=== PATIENT | male | born 1950 | race Caucasian/White ===

== ENCOUNTER → 2016-10-02 | Outpatient (CLI) | payer MEDICARE, OTHER ==
--- NOTE | 2016-10-02 12:51 | US ---
EXAMINATION TYPE: US thyroid st tissue head/neck DATE OF EXAM: 10/02/2016 11:39 AM COMPARISON: 09/17/2015 CLINICAL HISTORY: Thyroid Nodule E04.1. GLAND SIZE: Right Lobe: 4.7 x 2.2 x 2.5 cm Overall Parenchyma: heterogenous Left Lobe: 4.4 x 1.8 x 2.2 cm Overall Parenchyma: heterogeneous Isthmus Thickness: 0.3 cm NODULES RIGHT: # of nodules measured on right: 4 1. 1.1 X 0.6 x 1.0 cm hypoechoic solid nodule at the upper pole with well-defined margins. This no dule is wider than tall and shows intranodular vascularity. Prior size: 1.2 x 0.6 x 1.0 cm 2. 0.9 X 0.8 x 0.9 cm hypoechoic solid nodule at the upper/mid pole with well-defined margins. This nodule is wider than tall and shows no intranodular vascularity. Prior size: 0.9 x 0.9 x 0.9 cm 3. 2.0 X 1.8 x 1.7 cm hypoechoic solid nodule at the mid/lower pole with well-defined margins. This nodule is wider than tall and shows no intranodular vascularity. Prior size: 2.2 x 1.3 x 1.5 cm 4. 2.0 X 1.7 x 1.6 cm hypoechoic solid nodule at the lower pole with well-defined margins. This nod ule is wider than tall and shows no intranodular vascularity. Prior size: 2.1 x 1.7 x 1.6 cm LEFT: # of nodules measured on left: 0 ISTHMUS: # of nodules measured in the isthmus: 0 TECHNOLOGIST IMPRESSION: Right thyroid nodules as noted on prior exam. Probable lymph node left neck = 1.5 x 0.7 x 0.9cm IMPRESSION: 1. Bilateral thyroid nodules, stable
== END | disposition home or self-care (01) ==
LOC: RADUSWWP 10:57
PROVIDERS: ATTEND Surgery
DX: E04.2 Nontoxic multinodular goiter (principal)
CPT/HCPCS: 76536

== ENCOUNTER → 2016-10-19 | Outpatient (CLI) | payer MEDICARE, OTHER ==
--- NOTE | 2016-10-19 14:21 | CONS ---
DATE OF CONSULTATION: 10/19/2016 CONSULTATION/NEW PATIENT EVALUATION: A 66-year-old gentleman who had been re-evaluated in the Sleep Center for obstructive sleep apnea-hypopnea syndrome. HISTORY OF PRESENT ILLNESS/SLEEP-WAKE EVALUATION: Patient had last CPAP titration in 2010. At that time recommended pressure of 10 cm of water. Patient weight at that time was 284.8 pounds. Since that time, patient lost weight down to 244 pounds in 2012 and that was the last time when he was seen by me in Sleep Center. DURING SLEEP: Since that time, patient has increased his weight back to 279 pounds today. He continued to use his CPAP equipment every night for the whole night. He denied any significant snoring with the using of the CPAP tests. He has possibly awakening from sleep in the middle of the night bid nocturia. [place] Sleepiness Scale is 10. DURING THE DAY: During the day sometimes patient has problems with malaise and concentration. SLEEP SCHEDULE: Patient's usual sleep schedule is from 11:30 p.m. to 5 to 6 a.m. FALLING ASLEEP: No problem with falling asleep. No TV in bedroom. DURING THE DAY/WAKE EVALUATION: He may take one nap a day at around 8 - 10 p.m. No hypnagogic hallucinations. No sleep paralysis. PAST MEDICAL HISTORY: Hypertension, hyperlipidemia, back problems. PAST SURGICAL HISTORY: Right total hip replacement, L1-L2 laminectomy and fusion, tonsillectomy, appendectomy. MEDICATIONS: Enalapril, hydrochlorothiazide, ibuprofen. SOCIAL HISTORY: Positive for smoking on and off for about 45 years about 1 pack a day. Alcohol consumption occasional. FAMILY HISTORY: Hypertension, heart problems, arthritis, snoring, cancer, acid reflux, liver problems, thyroid problems. REVIEW OF SYSTEMS: Patient denied any significant sleepiness. PHYSICAL EXAM: During physical exam, a 66-year-old gentleman without distress. BP 152/87, HR 88, RR 16. Height 6, 1, weight 279. BMI 36.8. Neck 17-3/4 inches in circumference. Temperature 97.0. Oxygen saturation 97%. Oropharynx extremely low position of soft palate. ABDOMEN: Obese. EXTREMITIES: 1+ bilateral lower leg edema. IMPRESSION: 1. Obstructive sleep apnea-hypopnea syndrome mostly on control on CPAP unit with the pressure of 10 cm of water. Patient denied any snoring but [place] Sleepiness Scale is slightly increased to 10 and patient takes naps sometimes in the evening. 2. Obesity, body mass index of 36.8. 3. Hypertension. 4. Minimal swelling of the legs. 5. History of hyperlipidemia. 6. Status post total right hip replacement. 7. Back problems. 8. Status post L1-L2 laminectomy and fusion. 9. Status post tonsillectomy. 10. Status post appendectomy. PLAN: 1. Continue treatment with CPAP every night for the whole night. 2. Prescription for new CPAP supplies, including new CPAP machine. Patient CPAP unit is older than 6 years. 3. Losing weight. 4. Sleep hygiene with regular time in bed for at least 8 hours. 5. No driving if feeling any sleepiness. 6. I will see the patient for followup visit after he will get his new unit to evaluate clinical response on treatment, compliance with treatment and share apnea-hypopnea index reading from his machine to be sure that his treatment is working. Thank you very much for me allowing me to participate in the management of your patient. Sincerely, Rommel Palomares MD, PhD, FAASM. Diplomat of [place] [employer], Sleep Medicine Board by [place] [employer] [place] [employer] Cardio Clinician of [facility] [place]
== END | disposition home or self-care (01) ==
LOC: SLEEP 10:15
PROVIDERS: ATTEND Internal Medicine
DX: G47.33 Obstructive sleep apnea (adult) (pediatric) (principal); E66.9 Obesity, unspecified; Z68.36 Body mass index [BMI] 36.0-36.9, adult; I10 Essential (primary) hypertension; M79.89 Other specified soft tissue disorders; E78.5 Hyperlipidemia, unspecified; Z96.641 Presence of right artificial hip joint; Z98.1 Arthrodesis status; Z98.890 Other specified postprocedural states; F17.200 Nicotine dependence, unspecified, uncomplicated; Z79.899 Other long term (current) drug therapy
CPT/HCPCS: 99211

== ENCOUNTER → 2016-12-07 | Outpatient (CLI) | payer MEDICARE, OTHER ==
--- NOTE | 2016-12-07 11:24 | PN ---
DATE OF SERVICE: 12/07/2016 A 66-year-old gentleman who has been followed in the sleep center for treatment of obstructive sleep apnea/hypopnea syndrome. Patient received his new CPAP unit about one month ago by results of previous sleep study recommended CPAP pressure with 10 cm of water. I checked patient's CPAP machine. Patient is using the machine 100% of the time and 93% of the time for more than 4 hours. Leak from the patient's mask is up to 25 L/min, which is acceptable. Apnea-hypopnea index reading from the machine is 7.7 for the last month; for the last night, although it is 14.5, which is obviously higher than we are expecting. No significant sleepiness during the day. [place] Sleepiness Scale is 6. MEDICATIONS: Enalapril, hydrochlorothiazide, ibuprofen. The last titration done in 2010. During the physical exam, the patient in no distress. VITAL SIGNS: BP 157/92, HR 82, RR 16. Weight 272, which is less than during the last titration. Temperature 97.3. Oxygen saturation at room air 97%. HEENT: PERRLA. EOMI. Oropharynx extremely low position of soft palate. HEENT: PERRLA, EOMI. Evaluation of oropharynx showed tongue protrudes midline. Neck: Supple. No JVD. Thyroid is not palpable. LUNGS: Clear to percussion and to auscultation. Good air exchange. No wheezing or rhonchi. HEART: S1, S2 regular. No murmurs, gallops, or rubs. ABDOMEN: Obese. EXTREMITIES: No clubbing or cyanosis. HYDROELECTRIC PRODUCTION MANAGER: Awake, alert, and oriented x3. Cranial nerves 2 to 7 intact. There is no fasciculation or atrophy noted. No focal deficits observed. IMPRESSION: 1. Obstructive sleep apnea/hypopnea syndrome. Patient demonstrated very good compliance with treatment benefiting from treatment. 2. Some abnormalities of respiration with CPAP have been documented. 3. Obesity. 4. Hypertension. 5. History of hyperlipidemia. 6. Status post total right hip replacement. 7. Back problem. 8. Status post L1-L2 laminectomy and fusion. 9. Status post tonsillectomy. 10. Status post appendectomy. PLAN: 1. I changed regimen in CPAP unit to automatic in the range between 8 and 15. 2. Losing weight. 3. Sleep hygiene with regular time in bed for at least 8 hours. 4. No driving if feeling any sleepiness. 5. Sleep hygiene with regular time in bed for at least 8 hours. 6. Follow-up visit in 2 months. Thank you very much for allowing me to participate in the management your patient. Sincerely, Rommel Palomares MD, PhD, FAASM. Diplomat of [place] Board [employer], Sleep Medicine Board by [employer] of [employer] Medicine Pointer Helper of [facility] [place]
== END | disposition home or self-care (01) ==
LOC: SLEEP 10:09
PROVIDERS: ATTEND Internal Medicine
DX: G47.33 Obstructive sleep apnea (adult) (pediatric) (principal); E66.9 Obesity, unspecified; I10 Essential (primary) hypertension; E78.5 Hyperlipidemia, unspecified; Z96.641 Presence of right artificial hip joint; Z98.1 Arthrodesis status; Z98.890 Other specified postprocedural states; Z79.899 Other long term (current) drug therapy

== ENCOUNTER → 2016-12-29 | Outpatient (CLI) | payer MEDICARE, OTHER ==
--- NOTE | 2016-12-29 17:10 | CT ---
EXAMINATION TYPE: CT abdomen pelvis w con DATE OF EXAM: 12/29/2016 8:23 AM COMPARISON: NONE INDICATION: Umbilical hernia, chronic hepatitis, change in bowel habits DLP: 1682.4 mGycm, Automated exposure control for dose reduction was used. CONTRAST: 100 mL of Omnipaque 300. Study performed with Oral Contrast TECHNIQUE: Axial images were obtained from above the diaphragm to the pubic rami in the axial plane a t 5 mm thick sections. Reconstructed images are reviewed on the computer in the coronal plane. FINDINGS: Limited CT sections are obtained the lung bases. There is pneumonitis change in the posterior right lung base. Infection and mass would be within the differential. Follow-up is recommended. This may be an interval finding from 11/28/2010. CT ABDOMEN: Liver: Normal Spleen: Normal Pancreas: Normal Adrenal glands: Right adrenal gland is somewhat thickened at 1.3 cm. Left adrenal gland appears jose ramon l. Gallbladder: Normal Kidneys: No masses are evident. No hydronephrosis is present. A 0.9 cm cyst may be at the inferior pole left kidney. Delayed images were obtained through the kidneys, which remain unremarkable. Left periumbilical hernia containing mesenteric fat is present. The opening is 1.7 cm. Aorta: Vascular calcification is within the aorta. Inferior vena cava: Normal. CT PELVIS: Loops of bowel within the abdomen and pelvis are normal. There are loops of bowel which are incom pletely distended or lack oral contrast limiting their evaluation. Appendix: Normal as visualized. Urinary bladder: Normal. Genitourinary structures: Prostate appears within normal limits. Right hip beam hardening is present. Osseous structures: No suspicious lytic or sclerotic lesions. Degenerative disc changes are within th e lumbar spine. IMPRESSIONS: 1. Periumbilical hernia. 2. Mild prominence of the right adrenal gland.
== END | disposition home or self-care (01) ==
LOC: RADCTMAIN 07:55
PROVIDERS: ATTEND Family Medicine
DX: K42.9 Umbilical hernia without obstruction or gangrene (principal); B18.2 Chronic viral hepatitis C
CPT/HCPCS: 74177; Q9967

== ENCOUNTER → 2017-02-01 | Outpatient (CLI) | payer MEDICARE, OTHER ==
--- NOTE | 2017-02-01 10:58 | PN ---
DATE OF SERVICE: 02/01/2017 A 66-year-old gentleman who had been followed in sleep center for treatment of obstructive sleep apnea and hypopnea syndrome. During the previous visit, I changed the CPAP pressure from 10 cm of water to automatic regimen from 8 to 15 cm of water. Patient continued to use his CPAP equipment every night. I checked his CPAP unit today. Usage is 26 out of 30 nights for more than 4 hours. ( ) from the machine in the range of about 12.2 cm of water. AHI for the last month 8.1. Sometimes significant leak from the mask about 35 L/min. Patient uses Cortés FX nasal pillows. Sometimes he feels dry mouth, so most probably leak related to opening his mouth. He lost weight from 279 pounds down to 253 pounds. No significant sleepiness during the day. [place] Sleepiness Scale is 5. MEDICATIONS: Enalapril, hydrochlorothiazide, ibuprofen. During physical exam, the patient in no distress. VITAL SIGNS: BP 145/80, HR 72, RR 16. Height 6 feet 1 inch, weight 253. BMI 33.8. Temperature 92.9. Oxygen saturation at room air 99%. HEENT: PERRLA, EOMI, Evaluation of the oropharynx showed extremely low position of soft palate. NECK: Supple. No JVD, Thyroid is not palpable. LUNGS: Clear to percussion and to auscultation. Good air exchange. No wheezing or rhonchi. HEART: S1, S2 regular. No murmurs, gallops, or rubs. ABDOMEN: Soft and nontender. Bowel sounds are present. No organomegaly appreciated. GRATING MACHINE OPERATOR: Awake, alert, and oriented x3. Cranial nerves 2 to 7 intact. There is no fasciculation or atrophy noted. No focal deficits observed. IMPRESSION: 1. Obstructive sleep apnea hypopnea syndrome. Patient demonstrated great compliance with treatment benefiting from treatment with CPAP. Borderline leak by reading from the machine, possibly related to opening of his mouth. 2. Hypertension. 3. Hyperlipidemia. 4. Status post total right hip replacement. 5. Back problem. 6. Status post L1-L2 laminectomy and fusion. 7. Status post tonsillectomy. 8. Status post appendectomy. 9. Mild obesity. Patient lost weight down from 279 pounds to 253 pounds. PLAN: 1. Continue treatment with CPAP with the same regimen every night for the whole night. 2. Prescription for chin strap. 3. Continue losing weight. 4. Sleep hygiene with regular time in bed for at least 8 hours. 5. No driving if feeling any sleepiness. Thank you very much for allowing me to participate in the management of your patient. Sincerely, Rommel Palomares MD, PhD, FAASM Diplomat of [place] [employer] Sleep Medicine, Sleep Medicine Board by [place] [employer] Specialities [employer] [employer] of Internal Medicine [place] Actor of [facility] [place]
== END | disposition home or self-care (01) ==
LOC: SLEEP 09:58
PROVIDERS: ATTEND Internal Medicine
DX: G47.33 Obstructive sleep apnea (adult) (pediatric) (principal); I10 Essential (primary) hypertension; E66.9 Obesity, unspecified; Z68.33 Body mass index [BMI] 33.0-33.9, adult; Z79.899 Other long term (current) drug therapy

== ENCOUNTER → 2017-11-01 | Outpatient (CLI) | payer MEDICARE, OTHER ==
--- NOTE | 2017-11-01 11:23 | SFUN ---
SLEEP STUDY FOLLOW UP NOTE DATE OF SERVICE: 11/01/2017 This 67-year-old gentleman has been followed in sleep center for treatment of obstructive sleep apnea-hypopnea syndrome. The patient continued to use his CPAP equipment every night without significant problems related to mask, pressure or humidification. He is using a nasal pillow mask. [place] Sleepiness Scale today is 9. I checked his CPAP unit pressure mostly time in the range of 12.5, quite significant leak 31 L/minute. Apnea-hypopnea index in acceptable range for the last month 5.7, for 6 months 5.1, for the last night, 4.3. MEDICATIONS: Enalapril, hydrochlorothiazide, ibuprofen. PHYSICAL EXAM: During physical exam, patient in no distress. VITAL SIGNS: BP 153/90, HR 88, RR 16, height 6 feet and 1 inch, weight 247, BMI 32.5, temperature 97.2. The patient lost 6 pounds since the previous visit. Oxygen saturation in room air 99%. HEENT: PERRLA, EOMI. Oropharynx extremely low position of soft palate. NECK: Supple, no JVD. Thyroid is not palpable. LUNGS: A few wheezes. HEART: S1, S2 regular. No murmurs, gallops, or rubs. ABDOMEN: Soft and nontender. Bowel sounds are present. No organomegaly appreciated. EXTREMITIES: No clubbing or cyanosis. INTERACTIVE MARKETING STRATEGIST: Awake, alert, and oriented X3. Cranial nerves 2 to 7 intact. There is no fasciculation or atrophy. noted. No focal deficits observed. IMPRESSION: 1. Obstructive sleep apnea-hypopnea syndrome. The patient demonstrated great compliance with treatment benefitting from treatment. 2. Mild obesity, body mass index 32.5. 3. Hypertension. 4. Hyperlipidemia. 5. Status post total right hip replacement. 6. Status post L1-L2 laminectomy and fusion. 7. Back problems. 8. Status post tonsillectomy. 9. Status post appendectomy. 10.History of smoking for about 50-pack years; cough in the morning; possible chronic obstructive pulmonary disease. PLAN: 1. Continue treatment with CPAP with the same regimen, it is an auto from 8 to 15. 2. Continue losing weight. 3. Sleep hygiene with regular time in bed for at least 7-1/2 hours. 4. Prescription for all necessary CPAP supplies including mask, tube, filters. 5. No driving if feeling sleepiness. 6. Followup visit in 1 year or earlier if patient has any problems. 7. I discussed with the patient the necessity to consider stop smoking. Patient smokes for about 50 years. Continues smoking 1 pack a day. Has cough in the morning. Possible COPD. Thank you very much for allowing me to participate in management of your patient. Sincerely, Rommel Palomares MD, PhD, FAASM Diplomat of [employer] Special[employer] Board of Internal Medicine [place] Department Specialist of [facility] [place] MMODL / IJN: [id number] /
== END | disposition home or self-care (01) ==
LOC: SLEEP 09:59
PROVIDERS: ATTEND Internal Medicine
DX: G47.33 Obstructive sleep apnea (adult) (pediatric) (principal); E66.9 Obesity, unspecified; I10 Essential (primary) hypertension; E78.5 Hyperlipidemia, unspecified; Z99.89 Dependence on other enabling machines and devices; Z79.1 Long term (current) use of non-steroidal anti-inflammatories (NSAID); Z79.899 Other long term (current) drug therapy; Z68.32 Body mass index [BMI] 32.0-32.9, adult; Z98.1 Arthrodesis status; Z96.641 Presence of right artificial hip joint; Z90.89 Acquired absence of other organs; Z87.891 Personal history of nicotine dependence

== ENCOUNTER → 2018-01-23 | Outpatient (CLI) | payer MEDICARE, OTHER ==
--- NOTE | 2018-01-23 09:24 | US ---
EXAMINATION TYPE: US thyroid st tissue head/neck DATE OF EXAM: 01/23/2018 COMPARISON: 10/02/2016 CLINICAL HISTORY: 67-year-old male E04.2 MULTIPLE THYROID NODULES. Follow up thyroid nodules. Hx of negative thyroid biopsy. No thyroid medications. TECHNIQUE: Multiple sonographic images of the thyroid gland are obtained. FINDINGS: GLAND SIZE: Right Lobe: 5.4 x 2.1 x 2.3 cm Overall Parenchyma: heterogenous Left Lobe: 3.4 x 2.5 x 1.6 cm Overall Parenchyma: heterogeneous Isthmus Thickness: 0.3 cm NODULES RIGHT: # of nodules measured on right: 4 1. 1.2 X 1.0 x 0.6 cm isoechoic solid nodule at the upper pole with well-defined margins. This nod ule is taller than wide and shows intranodular vascularity. Prior size: 1.1 x 0.6 x 1.0 cm 2. Not appreciated on today's ultrasound scan 3. 2.3 X 1.6 x 1.4 cm hypoechoic solid nodule at the mid/lower pole with well-defined margins. This nodule is taller than wide and shows intranodular vascularity. Prior size: 2.0 x 1.8 x 1.7 cm 4. 1.7 X 1.5 x 1.8 cm hypoechoic solid nodule at the lower pole with well-defined margins. This nod ule is taller than wide and shows intranodular vascularity. Prior size: 2.0 x 1.7 x 1.6 cm LEFT: # of nodules measured on left: 0 ISTHMUS: # of nodules measured in the isthmus: 0 Bilateral neck scanned. Two lesions seen lateral to right thyroid. 1= 1.3 x 0.8 x 0.8 cm. 2= 0.6 x 0.4 x 0.7 cm, likely small cervical lymph nodes. IMPRESSION: Multiple nodules in the right lobe, largest measuring 2.3 x 1.6 cm versus 2.0 x 1.8 cm, previously, n ot significantly changed. One of the nodules previously seen is no longer identified and the other 2 nodules measure 1.8 cm and 1.2 cm, not significantly changed.
== END | disposition home or self-care (01) ==
LOC: RADUSWWP 08:13
PROVIDERS: ATTEND Family Medicine
DX: E04.2 Nontoxic multinodular goiter (principal)
CPT/HCPCS: 76536

== ENCOUNTER → 2018-09-20 | Outpatient (CLI) | payer MEDICARE, OTHER ==
[2018-09-20 08:23] LABS: Basophils % (A) 0 %; Eosinophils # (A) 0.2 k/uL (0-0.7); Eosinophils % (A) 3 %; HCT 45.7 % (39.0-53.0); HGB 15.5 gm/dL (13.0-17.5); Lymphocytes # (A) 1.2 k/uL (1.0-4.8); Lymphocytes % (A) 16 %; MCH 32.5 pg (25.0-35.0); MCHC 33.9 g/dL (31.0-37.0); MCV 95.8 fL (80.0-100.0); Monocytes # (A) 0.5 k/uL (0-1.0); Monocytes % (A) 7 %; Neutrophils # (A) 5.4 k/uL (1.3-7.7); Neutrophils % (A) 73 %; Platelet Count 226 k/uL (150-450); RBC 4.77 m/uL (4.30-5.90); WBC 7.4 k/uL (3.8-10.6)
[2018-09-20 17:45] LABS: Albumin 4.3 g/dL (3.80-4.90); Albumin/Globulin Ratio 2.39 (1.20-2.10); Anion Gap 9.8 mmol/L (4.00-12.00); Calcium 9.3 mg/dL (8.7-10.3); Carbon Dioxide 27.2 mmol/L (21.6-31.8); Globulin 1.8 g/dL (1.6-3.3); LDL Cholesterol,Calculated 170.6 mg/dL (0.0-131.0); Potassium 3.8 mmol/L (3.5-5.5); Total Bilirubin 0.6 mg/dL (0.2-1.2); Total Protein 6.1 g/dL (6.2-8.2); VLDL Calculation 22.4 mg/dL (5.00-40.00)
[2018-09-20 21:23] LABS: Hemoglobin A1C 5.5 % (4.0-6.0)
[2018-09-23 10:29] LABS: Hepatits C Virus RNA Not detected (Not detected); Hepatits C Virus RNA, Quant <12 IU/mL (<12); LOG HCV IU/mL <1.08 (<1.08)
== END | disposition home or self-care (01) ==
LOC: LABWHC1 07:34
PROVIDERS: ATTEND Family Medicine
DX: I10 Essential (primary) hypertension (principal); E78.2 Mixed hyperlipidemia; E04.1 Nontoxic single thyroid nodule; R76.8 Other specified abnormal immunological findings in serum
CPT/HCPCS: 36415; 80053; 80061; 83036; 84443; 85025; 86803; 87522

== ENCOUNTER → 2019-02-06 | Outpatient (CLI) | payer MEDICARE, OTHER ==
--- NOTE | 2019-02-06 12:27 | SFUN ---
SLEEP CENTER FOLLOW UP NOTE DATE OF SERVICE: 02/06/2019 A 68-year-old gentleman who has been followed in the Sleep Center for treatment of obstructive sleep apnea-hypopnea syndrome. Patient continued to use his CPAP equipment every night for the whole night. [place] Sleepiness Scale is 8, which is in normal range. I checked his CPAP unit, it is in automatic regimen with a pressure 8-15 cm of water. Average pressure of 14.3 cm of water. Usage is 30/30 nights for more than 4 hours with average usage 6.1 hours. Leak 32 L/minute. Apnea-hypopnea index for 1 month 10.1, for 6 months 8.3. Patient significantly increased his weight since previous visit. MEDICATIONS: Enalapril, hydrochlorothiazide, ibuprofen. PHYSICAL EXAM: Patient in no distress. BP 157/95, HR 72, RR 16, height 6 foot 1 inch, weight 271 pounds, body mass index 35.7, temperature 97.4, oxygen saturation at room air 97%. OROPHARYNX: Extremely low position of soft palate, Mallampati 4. ABDOMEN: Slightly obese. Neck Supple, no JVD. Thyroid is not palpable. LUNGS Clear to percussion and to auscultation. Good air exchange. No wheezing or rhonchi. HEART S1, S2 regular. No murmurs, gallops, or rubs. EXTREMITIES No clubbing or cyanosis. POWER LINE INSTALLER Awake, alert, and oriented X3. Cranial nerves 2 to 7 intact. There is no fasciculation or atrophy. noted. No focal deficits observed. IMPRESSION: 1. Obstructive sleep apnea-hypopnea syndrome. Patient demonstrated 100% compliance with treatment, benefitting from treatment with increasing weight, slight increasing of apnea/hypopnea index, in mild range. 2. Obesity, patient increased weight from 247 pounds during previous visit to 271 pounds during this visit. 3. Hypertension. 4. Hyperlipidemia. 5. Status post total right hip replacement. 6. Status post L1-L2 laminectomy and fusion. 7. Back problems. 8. Status post tonsillectomy. 9. Status post appendectomy. 10.History of smoking for about 50 pack years. Patient quit smoking during the last year. PLAN: 1. I increased maximal pressure in CPAP unit to 16. I discussed with the patient possibility of repeating CPAP titration. He is refusing to do it at the present time. 2. Losing weight. 3. Sleep hygiene with regular time in bed for at least 8 hours. 4. Prescription for all necessary CPAP supplies will be maintained including mask, tube, filters. 5. No driving if feeling sleepiness. Thank you very much for allowing me to participate in the management of your patient. Sincerely, Rommel Palomares MD, PhD, FAASM Diplomat of [employer] Specialties [employer] Board of Internal Medicine Cloth Finishing Range Tender of [facility] [place] MMODL / PAYAMN: [id number] /
== END | disposition home or self-care (01) ==
LOC: SLEEP 10:24
PROVIDERS: ATTEND Internal Medicine
DX: G47.33 Obstructive sleep apnea (adult) (pediatric) (principal); E66.9 Obesity, unspecified; I10 Essential (primary) hypertension; M54.9 Dorsalgia, unspecified; E78.5 Hyperlipidemia, unspecified; Z79.899 Other long term (current) drug therapy; Z96.651 Presence of right artificial knee joint; Z99.89 Dependence on other enabling machines and devices; Z68.35 Body mass index [BMI] 35.0-35.9, adult; Z98.1 Arthrodesis status; Z79.1 Long term (current) use of non-steroidal anti-inflammatories (NSAID); Z90.89 Acquired absence of other organs; Z79.891 Long term (current) use of opiate analgesic

== ENCOUNTER → 2019-06-04 | Outpatient (CLI) | payer MEDICARE, OTHER ==
[2019-06-04 08:40] LABS: Basophils # (A) 0.1 k/uL (0-0.2); Basophils % (A) 1 %; Eosinophils % (A) 0 %; HCT 43.2 % (39.0-53.0); HGB 14.9 gm/dL (13.0-17.5); Lymphocytes # (A) 0.7 k/uL (1.0-4.8); Lymphocytes % (A) 9 %; MCH 32.4 pg (25.0-35.0); MCHC 34.6 g/dL (31.0-37.0); MCV 93.7 fL (80.0-100.0); Mean Platelet Volume 6.2; Monocytes # (A) 0.5 k/uL (0-1.0); Monocytes % (A) 7 %; Neutrophils # (A) 6.8 k/uL (1.3-7.7); Neutrophils % (A) 82 %; Platelet Count 255 k/uL (150-450); RBC 4.61 m/uL (4.30-5.90); RDW 12.9 % (11.5-15.5); WBC 8.2 k/uL (3.8-10.6)
[2019-06-04 16:44] LABS: African American GFR (CKD) 105.6 (60.0-200.0); Albumin 4.7 g/dL (3.80-4.90); Albumin/Globulin Ratio 2.76 (1.60-3.17); Anion Gap 11.7 mmol/L (4.00-12.00); Calcium 9.8 mg/dL (8.7-10.3); Carbon Dioxide 26.3 mmol/L (21.6-31.8); Chol/HDL Ratio 4.05; Globulin 1.7 g/dL (1.6-3.3); Total Bilirubin 0.5 mg/dL (0.2-1.2); Total Protein 6.4 g/dL (6.2-8.2); Uric Acid 4.7 mg/dL (3.7-8.7)
[2019-06-04 18:27] LABS: Hemoglobin A1C 5.3 % (4.0-6.0)
== END | disposition home or self-care (01) ==
LOC: LABWHC1 08:02
PROVIDERS: ATTEND Family Medicine
DX: E55.9 Vitamin D deficiency, unspecified (principal); E78.2 Mixed hyperlipidemia; R05 Cough; R06.2 Wheezing; I10 Essential (primary) hypertension; R73.01 Impaired fasting glucose; R76.8 Other specified abnormal immunological findings in serum; Z87.891 Personal history of nicotine dependence; Z12.5 Encounter for screening for malignant neoplasm of prostate
CPT/HCPCS: 36415; 80053; 80061; 82306; 83036; 84153; 84443; 84550; 85025; 86803

== ENCOUNTER → 2019-07-02 | Outpatient (CLI) | payer MEDICARE, OTHER ==
[2019-07-02 12:03] LABS: Prolactin 9.1 ng/mL (2.1-17.7)
[2019-07-02 15:14] LABS: ACTH 7.2 pg/mL (0.00-45.99)
== END | disposition home or self-care (01) ==
LOC: LABWHC1 07:46
PROVIDERS: ATTEND Family Medicine
DX: I10 Essential (primary) hypertension (principal); Q89.1 Congenital malformations of adrenal gland
CPT/HCPCS: 36415; 82024; 82088; 82533; 82627; 83835; 84146; 84244

== ENCOUNTER → 2020-04-20 | Outpatient (CLI) | payer MEDICARE, OTHER | END | disposition home or self-care (01) | LOC: LABWHC1 10:42 | PROVIDERS: ATTEND Family Medicine | DX: R06.02 Shortness of breath (principal) | CPT/HCPCS: U0003; C9803 ==

== ENCOUNTER → 2020-05-27 | Outpatient (CLI) | payer MEDICARE, OTHER ==
--- NOTE | 2020-05-28 03:58 | SFUN ---
SLEEP CENTER FOLLOW UP NOTE DATE OF SERVICE: 05/27/2020 This is a 69-year-old gentleman who has been followed in Sleep Center for treatment of obstructive sleep apnea-hypopnea syndrome. Recently patient received his loaner for his CPAP unit because his CPAP equipment did not work well. Patient has difficulties to using his CPAP machine. He feels the pressure is high and sometimes there is significant leak from the mask. I checked the CPAP machine. CPAP pressure is 16 cm of water. Patient demonstrated good compliance. He is using machine 30 out of 30 nights for more than 4 hours with average of 6 hours per night. Apnea-hypopnea index reading from the machine is 7.8. Significant leak is 112 L/minute. Patient using nasal pillow mask Cortés FX. [place] Sleepiness Scale is 11. MEDICATIONS: Enalapril 20 mg twice daily, hydrochlorothiazide 25 mg once a day, metoprolol 50 mg twice daily, ibuprofen 800 mg once daily, 81 mg of aspirin once daily. PHYSICAL EXAMINATION: GENERAL: Patient in no distress. VITAL SIGNS: BP 160/92, HR 69, RR 15, height 6 feet 1-1/4 inches, weight 284.4, temperature 98.2, oxygen saturation at room air 97%. HEENT: PERRLA, EOMI. Oropharynx extremely low position of soft palate. Mallampati 4. NECK: Supple, no JVD. Thyroid is not palpable. LUNGS: Clear to percussion and to auscultation. Good air exchange. No wheezing or rhonchi. HEART: S1, S2 regular. No murmurs, gallops, or rubs. ABDOMEN: Obese. EXTREMITIES: No clubbing or cyanosis. OPEN HEARTH FURNACE OPERATOR HELPER: Awake, alert, and oriented X3. Cranial nerves 2 to 7 intact. There is no fasciculation or atrophy. noted. No focal deficits observed. IMPRESSION: 1. Obstructive sleep apnea-hypopnea syndrome. The patient demonstrated good compliance with treatment benefitting from treatment but feels discomfort with the CPAP, high leak from the mask. 2. Obesity. 3. Hypertension. 4. Hyperlipidemia. 5. Status post total right hip replacement. 6. Status post L1-L2 laminectomy and fusion. 7. Back problems. 8. Status post appendectomy. 9. Status post tonsillectomy. 10.History of smoking for 50 pack years, quit smoking one year ago. PLAN: 1. I changed the regimen of the machine to automatic, range of the pressure 8 to 16 cm of water. 2. Patient should use chinstrap. 3. Patient will continue to use PAP equipment every night for the whole night. 4. Sleep hygiene with regular time in bed for at least 7-1/2 to 8 hours. 5. Precautions related to driving. No driving if feeling sleepiness. 6. I will maintain all necessary prescription for PAP supplies including mask, tube, filters. 7. Watching weight. 8. No driving if feeling sleepiness. 9. Follow-up visit in 3 months or earlier if patient has any problems. Thank you very much for allowing me to participate in management of your patient. Sincerely, Rommel Palomares MD, PhD, FAASM Diplomat of [place] Special[employer] Board of Internal Medicine Oncology Social Worker of [facility] [place] MMKYLE / KAVITA: [id number] /
== END | disposition home or self-care (01) ==
LOC: SLEEP 15:18
PROVIDERS: ATTEND Internal Medicine
DX: G47.33 Obstructive sleep apnea (adult) (pediatric) (principal); Z99.89 Dependence on other enabling machines and devices; E66.9 Obesity, unspecified; I10 Essential (primary) hypertension; E78.5 Hyperlipidemia, unspecified; Z96.641 Presence of right artificial hip joint; Z90.49 Acquired absence of other specified parts of digestive tract; Z87.891 Personal history of nicotine dependence; M43.9 Deforming dorsopathy, unspecified

== ENCOUNTER → 2020-06-04 | Outpatient (CLI) | payer MEDICARE | END | disposition home or self-care (01) | LOC: LABWHC1 10:47 | PROVIDERS: ATTEND Family Medicine | DX: E78.2 Mixed hyperlipidemia (principal); I10 Essential (primary) hypertension; R73.01 Impaired fasting glucose; R06.02 Shortness of breath; Z87.19 Personal history of other diseases of the digestive system | CPT/HCPCS: 36415; 87522 ==

== ENCOUNTER → 2020-06-14 | Outpatient (CLI) | payer MEDICARE, OTHER ==
[2020-06-15 04:03] LABS: African American GFR (CKD) 70.6 (60.0-200.0); Non-African American GFR(CKD) 60.9 (60.0-200.0)
== END | disposition home or self-care (01) ==
LOC: LABWHC1 15:45
PROVIDERS: ATTEND Family Medicine
DX: R06.02 Shortness of breath (principal)
CPT/HCPCS: 36415; 82565; 84520

== ENCOUNTER → 2020-06-15 | Outpatient (CLI) | payer MEDICARE, OTHER ==
--- NOTE | 2020-06-15 14:22 | CT ---
EXAMINATION TYPE: CT ChestAbdPelvis w con DATE OF EXAM: 06/15/2020 INDICATION: Shortness of breath, adrenal anomaly COMPARISON: 12/29/2016 CT DLP: 3062.5 mGycm CONTRAST: Performed with Oral Contrast and with IV Contrast, patient injected with 100 mL of Isovue 300. TECHNIQUE: Axial images at 5 mm thick sections. Reconstructed images in the coronal plane. Delayed images through the kidneys. FINDINGS: CT CHEST: Portion of the thyroid visualized is normal. There is a 0.8 cm nodule in the periphery of the right lower lobe. Series 4 image 39. No enlarged mediastinal or hilar adenopathy is evident. The ascending aorta diameter at the level of the main pulmonary artery is 3.9 cm. The main pulmonary artery diameter at the bifurcation is 2.9 cm. Coronary artery calcifications present. CT ABDOMEN: Liver: Normal Spleen: Normal Pancreas: Normal Adrenal glands: There is a 1.6 cm nodularity at the right adrenal gland. Left adrenal gland appears n ormal Gallbladder: Normal Kidneys: No masses are evident. No hydronephrosis is present. 2.1 cm cyst on the posterior right ki dney. Delayed images were obtained through the kidneys, which remain unremarkable. There is malrotat ion of the right kidney. Aorta: Vascular calcification is within the aorta. Inferior vena cava: Normal. CT PELVIS: There is a right hip prosthesis. Loops of bowel within the abdomen and pelvis are normal. There are loops of bowel which are incom pletely distended or lack oral contrast limiting their evaluation. Appendix: Not identified. No suspicious dilated tubular structures or inflammatory changes evident. Urinary bladder: Normal. Genitourinary structures: Prostate appears within normal limits as visualized. Osseous structures: No suspicious lytic or sclerotic lesions. Degenerative disc changes are within th e lumbar spine. IMPRESSIONS: 1. Slight enlargement of the right adrenal gland compared to 2017. Consider dynamic CT abdomen to jarrod luate for adenoma. 2. Stable right renal cyst. 3. A 0.8 cm nodule periphery of the right lower lobe. Additional workup recommended. Consider PET CT.
== END | disposition home or self-care (01) ==
LOC: RADCTMAIN 10:43
PROVIDERS: ATTEND Family Medicine
DX: N28.1 Cyst of kidney, acquired (principal); R91.1 Solitary pulmonary nodule; E27.8 Other specified disorders of adrenal gland
CPT/HCPCS: 71260; 74177; Q9967

== ENCOUNTER → 2020-06-25 | Outpatient (CLI) | payer MEDICARE, OTHER ==
--- NOTE | 2020-06-28 10:02 | PE ---
Nuclear medicine PET/CT HISTORY: R 91.1, lung nodule, E 27.9 adrenal abnormality, initial Patient received 11.7 mCi F-18 intravenously and delayed scanning was performed from the skull base t o the mid thighs. Localization and attenuation correction CT scan was performed. Correlation to chest abdomen pelvis CT dated 06/15/2020 Chest and neck: There is no supraclavicular or cervical adenopathy. Mild uptake noted within the axil carly nodes, there is left hilar uptake, SUV 5.2. No pleural or pericardial effusion. Mild uptake in t he perihilar location right middle lobe, axial image 99, SUV 3.7. Nodular density is seen at the leve l of the diaphragm on the right on axial image [address] axial image 51, nodule jamie cribed in prior report is subcentimeter in size and also does not show any definite associated uptake . ABDOMEN: There is no evident abnormal liver uptake. No retroperitoneal adenopathy. Adrenal glands windy ws no suspicious hypermetabolic uptake. There is no ascites. No pelvic adenopathy. Osseous structures show streak artifact due to patient's right hip prosthesis. No suspicious uptake i s present. Degenerative disc changes are present in the visualized lumbar spine. IMPRESSION: Nonspecific findings as described in the chest. Right adrenal nodule likely represents ad enoma. No associated uptake within the nodular density in the right lower lobe.
== END | disposition home or self-care (01) ==
LOC: RADPETMAIN 17:09
PROVIDERS: ATTEND Family Medicine
DX: E27.9 Disorder of adrenal gland, unspecified (principal); R91.1 Solitary pulmonary nodule
CPT/HCPCS: 78815; A9552

== ENCOUNTER → 2020-07-06 | Outpatient (CLI) | payer MEDICARE, OTHER | END | disposition home or self-care (01) | LOC: CPPFTMAIN 10:22 | PROVIDERS: ATTEND Family Medicine | DX: J98.8 Other specified respiratory disorders (principal) | CPT/HCPCS: 94060; 94726; 94729 ==

== ENCOUNTER → 2020-09-23 | Outpatient (CLI) | payer MEDICARE, OTHER ==
[2020-09-23 08:22] LABS: HCT 48.8 % (39.0-53.0); HGB 16.1 gm/dL (13.0-17.5); MCH 31.8 pg (25.0-35.0); MCHC 32.9 g/dL (31.0-37.0); MCV 96.5 fL (80.0-100.0); Mean Platelet Volume 6.7; Platelet Count 257 k/uL (150-450); RBC 5.06 m/uL (4.30-5.90); RDW 13.3 % (11.5-15.5); WBC 8.6 k/uL (3.8-10.6)
[2020-09-23 08:47] LABS: African American GFR (CKD) >90 (>60 ml/min/1.73 sqM); Anion Gap 7 mmol/L; Blood Urea Nitrogen 22 mg/dL (9-20); Carbon Dioxide 30 mmol/L (22-30); Chloride 102 mmol/L (98-107); Non-African American GFR(CKD) 85 (>60 ml/min/1.73 sqM); Potassium 4.4 mmol/L (3.5-5.1); Sodium 139 mmol/L (137-145)
== END | disposition home or self-care (01) ==
LOC: LABPAT 08:03
PROVIDERS: ATTEND Internal Medicine Interventional Cardiology
DX: Z01.818 Encounter for other preprocedural examination (principal); R94.39 Abnormal result of other cardiovascular function study
CPT/HCPCS: 36415; 80051; 82565; 84520; 85027

== ENCOUNTER 2020-09-28 09:23 | Day surgery (SDC) | payer MEDICARE, OTHER ==
[2020-09-22 09:28] VITALS: BMI 38.9
[~2020-09-28 09:23] MED LIST: ALPRAZolam 0.25 MG TAB PO PRN; ALPRAZolam 0.5 MG TAB PO PRN; ASPIRIN 325 MG TAB PO ONE; HEPARIN SODIUM,PORCINE 10,000 UNIT in SODIUM CHLORIDE 0.9% 1,000 ML IRRIGATION PRN; HEPARIN SODIUM,PORCINE 2,500 UNIT in SODIUM CHLORIDE 0.9% 250 ML IRRIGATION PRN; NITROGLYCERIN SL TABS 0.4 MG TAB SUBLINGUAL PRN; SODIUM CHLORIDE 0.9% 1,000 ML in EMPTY BAG 1 BAG IV ONE
[2020-09-28] MEDS ORDERED: SODIUM CHLORIDE 0.9% 1,000 ML IV ONE (09:35)
[2020-09-28 09:48] VITALS: RESP 16; TEMP 98
[2020-09-28] MEDS ORDERED: MIDAZOLAM 2 MG/2 ML VIAL IV ONE (10:26)
[2020-09-28] MEDS ORDERED: LIDOCAINE 1% INJ 10MG/ML (20 ML MDV) SQ ONE (10:30)
[2020-09-28] MEDS ORDERED: VERAPAMIL SYRINGE (5 MG/10 ML) INTRAARTER ONE (10:34)
[2020-09-28] MEDS ORDERED: HEPARIN SODIUM 1,000 UN/ML (10ML VL) IV ONE (10:35)
[2020-09-28] MEDS ORDERED: NITROGLYCERIN SL TABS 0.4 MG TAB SUBLINGUAL ONE (10:43)
[2020-09-28] MEDS ORDERED: BIVALIRUDIN BOLUS 250 MG/50 ML IV ONE (10:55)
[2020-09-28] MEDS ORDERED: BIVALIRUDIN 250 MG in SODIUM CHLORIDE 0.9% 50 ML IV ONE (10:55)
[2020-09-28] MEDS ORDERED: HYDROmorphone 0.5 MG/0.5 ML SYRINGE IVP ONE (10:55)
[2020-09-28] MEDS ORDERED: IOPAMIDOL-370 100ML BTL INJ ONE ×2 (10:59→11:20)
[2020-09-28] MEDS ORDERED: CLOPIDOGREL 75 MG TAB PO ONE (11:08)
[2020-09-28] MEDS ORDERED: NITROGLYCERIN 1000MCG/10ML SYRINGE INTRACORON ONE (11:14)
[2020-09-28] MEDS ORDERED: amLODIPine 5 MG TAB PO ONE (11:18)
[2020-09-28] MEDS ORDERED: IBUPROFEN 800 MG TAB PO PRN (11:34)
[2020-09-28] MEDS ORDERED: MAG HYDROX/AL HYDROX/SIMETH 30 ML CUP PO PRN (11:35)
[2020-09-28] MEDS ORDERED: ATROPINE SULFATE 0.1 MG/ML 10ML SYRINGE IV PRN (11:35)
[2020-09-28] MEDS ORDERED: ZOLPIDEM 5 MG TAB PO PRN (11:35)
[2020-09-28] MEDS ORDERED: RX INFO: IV CONTRAST WAS GIVEN 1 EACH MISC MISCELLANE PRN (11:35)
[2020-09-28] MEDS ORDERED: SODIUM CHLORIDE 0.9% 1,000 ML IV SCH (11:45)
--- NOTE | 2020-09-28 15:41 | CC ---
CARDIAC CATHETERIZATION REPORT DATE OF SERVICE: 09/28/2020 PROCEDURE: 1. Left heart catheterization and coronary angiography. 2. Percutaneous transluminal coronary angioplasty and stenting of proximal and mid circumflex coronary artery with 2 drug-eluting stents with excellent result. PERFORMED BY: Dr. Mariana Elam. Moderate conscious sedation time was 52 minutes. The patient was administered Versed. Oxygen saturation, hemodynamics and EKG were monitored closely. CLINICAL INFORMATION: Mr. Jeronimo Mark is a 70-year-old gentleman with a history of hypertension, hyperlipidemia and a recent abnormal stress test. He was advised cardiac catheterization after due discussion regarding risks, benefits and options. PROCEDURE NOTE: Under local anesthesia and strict aseptic precautions, a 6-[place] introducer was placed in the right radial artery. Using JL3.5 and JR4 catheters, I performed coronary angiography, and the same right catheter was used to check LV pressures, but LV gram was not performed. Following the cardiac cath I proceeded to perform PTCA of proximal and mid circumflex with 2 drug-eluting stents. Subsequently a TR band was applied with good hemostasis, and the saturation in the fingers of the right hand was 100%. The patient was sent to the room in a stable condition. CARDIAC CATHETERIZATION FINDINGS: The left ventricular end-diastolic pressure was about 12 to 13 mmHg without any gradient across the aortic valve. CORONARY ANGIOGRAPHY FINDINGS: RIGHT CORONARY ARTERY: Large dominant vessel, has minor irregularities, no significant disease. Distally bifurcates into PDA and PLV, both of which have minor irregularities. No significant disease in the dominant RCA. LEFT MAIN CORONARY ARTERY: Short, patent, disease-free vessel that bifurcates into LAD and circumflex. LEFT ANTERIOR DESCENDING CORONARY ARTERY: Fair-caliber vessel extends along the anterior wall, gives off septal and diagonal branches, has minor irregularities of anywhere from 20% to 30%, but no significant disease in the entire LAD system. LEFT POSTERIOR CIRCUMFLEX CORONARY ARTERY: Technically a nondominant vessel, gives off an obtuse marginal, and right at the takeoff of the obtuse marginal there is an eccentric 70% stenosis, and again in the mid portion at the origin of a groove branch there is another 80% stenosis. Both of these appear to be significant, and the patient had an inferior wall defect suggestive of ischemia. Left ventriculogram was not performed. FINAL IMPRESSION: This patient has normal filling pressures. No gradient across the aortic valve. A right-dominant system without significant disease in the RCA, minor irregularities in the LAD system. Mid and proximal circumflex have a 90% and 80% stenosis. LV gram was not performed. RECOMMENDATIONS: I recommended PTCA of the mid and proximal circumflex and proceeded to perform this in the same setting. PERCUTANEOUS CORONARY INTERVENTION PROCEDURE DETAILS: I used a JL3.5 guide catheter to cannulate the left coronary artery, and a run-through wire was used to cross the lesion. Predilatation of the mid and proximal circumflex was performed with a 2.25, 8 mm NC Trek balloon. Subsequently a 12 mm 2.25 caliber Xience stent was deployed in the mid lesion, and in the proximal lesion I used a 2.5 caliber 8 mm long Xience stent which was deployed at 11 atmospheres. Patient did not have significant chest pain or EKG changes. Excellent angiographic result was achieved without complication. The sheath was taken out and TR band applied as per protocol. The patient received 600 mg of Plavix and also received Angiomax bolus and infusion as per protocol. Results were discussed with the patient and images reviewed. I also spoke to his by phone. I expect that he will be discharged later on this evening if he remains stable, and I will see him in the office in the next 48 hours. The patient had an excellent angiographic result without complication. MMODL / IJN: [id number] /
[2020-09-28] MEDS ORDERED: ASPIRIN 81 MG PO SCH (17:30)
[2020-09-28 19:42] VITALS: BP 167/67; PULSE 67
[2020-09-28] MEDS ORDERED: ATORVASTATIN 40 MG TAB PO SCH (21:00)
[2020-09-28] MEDS ORDERED: METOPROLOL TARTRATE 50 MG TAB PO SCH (21:00)
[2020-09-28] MEDS ORDERED: lisinopriL 20 MG TAB PO SCH (21:00)
[2020-09-29] MEDS ORDERED: SINGULAIR PO SCH (09:00)
[2020-09-29] MEDS ORDERED: hydroCHLOROthiazide 25 MG TAB PO SCH (09:00)
[2020-09-29] MEDS ORDERED: CLOPIDOGREL 75 MG TAB PO SCH (12:00)
== END 2020-09-28 18:05 | disposition home or self-care (01) ==
LOC: CATHCVL 09:23
PROVIDERS: ATTEND Internal Medicine Interventional Cardiology
DX: I25.110 Atherosclerotic heart disease of native coronary artery with unstable angina pectoris (principal); I10 Essential (primary) hypertension; G47.33 Obstructive sleep apnea (adult) (pediatric); E78.00 Pure hypercholesterolemia, unspecified; E78.5 Hyperlipidemia, unspecified; M51.36 Other intervertebral disc degeneration, lumbar region; E66.9 Obesity, unspecified; Z79.82 Long term (current) use of aspirin; Z79.899 Other long term (current) drug therapy; Z88.8 Allergy status to other drugs, medicaments and biological substances; Z88.6 Allergy status to analgesic agent; Z99.89 Dependence on other enabling machines and devices; Z82.49 Family history of ischemic heart disease and other diseases of the circulatory system; Z68.34 Body mass index [BMI] 34.0-34.9, adult
CPT/HCPCS: 93458; C9600; C1887; C1725; C1769 ×2; C1874; C1894; J2250; J2001; J1644; J0583; J1170; Q9967

== ENCOUNTER → 2021-02-02 | Outpatient (CLI) | payer MEDICARE ==
[2021-02-02 16:08] LABS: HCT 41.4 % (39.6-50.0); HGB 14.2 g/dL (13.0-17.0); MCH 32.6 pg (27.0-32.0); MCHC 34.3 g/dL (32.0-37.0); MCV 95.2 fL (80.0-97.0); Mean Platelet Volume 10.3 fL (9.5-12.2); Platelet Count 218 X 10*3/uL (140-440); RBC 4.35 X 10*6/uL (4.40-5.60); RDW 12.6 % (11.5-14.5); WBC 7.43 X 10*3/uL (4.50-10.00)
== END ==
LOC: LABWHC1 10:10
PROVIDERS: ATTEND Internal Medicine Interventional Cardiology
DX: I25.10 Atherosclerotic heart disease of native coronary artery without angina pectoris (principal); D64.9 Anemia, unspecified
CPT/HCPCS: 36415; 85027

== ENCOUNTER 2021-02-18 09:36 | Emergency (ER) | payer MEDICARE ==
[2021-02-18 09:47] VITALS: BP 160/93; PULSE 65; RESP 18; TEMP 97.5
--- NOTE | 2021-02-18 09:55 | ED ---
General Adult HPI - General Chief complaint: Extremity Injury, Lower Stated complaint: possible blood clot Time Seen by Provider: 02/18/21 09:50 Source: patient, RN notes reviewed Mode of arrival: ambulatory Limitations: no limitations - History of Present Illness Initial comments: Patient is a pleasant 70-year-old male presenting to the emergency department complaints of left calf discomfort. Onset of symptoms was a couple of days ago. Patient questions whether or not there could be some swelling. No chest pain or dyspnea. No history of similar symptoms previously. No recent trauma. No skin discoloration. - Related Data Home Medications Medication Instructions Recorded Confirmed hydroCHLOROthiazide 25 mg PO DAILY 09/24/15 02/18/21 Metoprolol Tartrate [Lopressor] 50 mg PO BID 09/22/20 02/18/21 lisinopriL 20 mg PO BID 09/22/20 02/18/21 Atorvastatin [Lipitor] 40 mg PO HS 02/18/21 02/18/21 Previous Rx's Medication Instructions Recorded Clopidogrel [Plavix] 75 mg PO DAILY #0 tab 09/28/20 Nitroglycerin Sl Tabs [Nitrostat] 0.4 mg SUBLINGUAL Q5M PRN #0 tab 09/28/20 Allergies Allergy/AdvReac Type Severity Reaction Status Date / Time No Known Allergies Allergy Verified 02/18/21 11:10 Review of Systems ROS Statement: Those systems with pertinent positive or pertinent negative responses have been documented in the HPI. ROS Other: All systems not noted in ROS Statement are negative. Constitutional: Denies: fever Eyes: Denies: eye pain ENT: Denies: ear pain Respiratory: Denies: cough, dyspnea Cardiovascular: Denies: chest pain Endocrine: Denies: fatigue Gastrointestinal: Denies: abdominal pain Genitourinary: Denies: dysuria Musculoskeletal: Reports: as per HPI Skin: Denies: rash Neurological: Denies: weakness Past Medical History Past Medical History: COPD, Hyperlipidemia, Hypertension, Liver Disease, Osteoarthritis (OA), Sleep Apnea/CPAP/BIPAP, Thyroid Disorder Additional Past Medical History / Comment(s): emphysema, umbillical hernia, thyroid nodules, edema of feet and legs, hx hepatitis C-tx yrs ago, no Rx for cholesterol, History of Any Multi-Drug Resistant Organisms: None Reported Past Surgical History: Adenoidectomy, Appendectomy, Back Surgery, Heart Catheterization With Stent, Joint Replacement, Orthopedic Surgery, Tonsillectomy Additional Past Surgical History / Comment(s): total R hip arthroplasty. back fusion, milla cataracts, hemorrhoidectomy, tumor removed from chest area, thyroid nodule biopsy., colonoscopy with polypectomy Past Anesthesia/Blood Transfusion Reactions: Postoperative Nausea & Vomiting (PONV) Additional Past Anesthesia/Blood Transfusion Reaction / Comment(s): No blood transfusions Past Psychological History: No Psychological Hx Reported Smoking Status: Former smoker Past Alcohol Use History: None Reported Past Drug Use History: None Reported - Past Family History Mother Family Medical History: Cancer Additional Family Medical History / Comment(s): Liver Father Additional Family Medical History / Comment(s): cystomegaly Brother(s) Family Medical History: Pulmonary Embolus Additional Family Medical History / Comment(s): age 17 General Exam Limitations: no limitations General appearance: alert, in no apparent distress Head exam: Present: atraumatic Eye exam: Present: normal appearance Respiratory exam: Present: normal lung sounds bilaterally Cardiovascular Exam: Present: regular rate, normal rhythm Expanded Peripheral pulses: 2+: Posterior Tibialis (L), Dorsalis Pedis (L) GI/Abdominal exam: Present: soft. Absent: tenderness Extremities exam: Present: calf tenderness (Left mid to lower calf) Back exam: Present: normal inspection Neurological exam: Present: alert. Absent: motor sensory deficit Psychiatric exam: Present: normal affect, normal mood Skin exam: Present: normal color. Absent: erythema Course Vital Signs 02/18/21 09:42 Temperature 97.5 F L Pulse Rate 65 Respiratory 18 Rate Blood Pressure 160/93 O2 Sat by Pulse 98 Oximetry Medical Decision Making - Medical Decision Making Patient reevaluated and updated - Radiology Data Radiology results: report reviewed (Ultrasound negative for DVT) Disposition Clinical Impression: Pain of left calf Disposition: HOME SELF-CARE Condition: Stable Instructions (If sedation given, give patient instructions): Leg Pain (ED) Additional Instructions: Please do follow-up with your primary care physician in the next couple days for recheck. If symptoms continue or worsen consider repeat ultrasound. Return for chest pain, difficulty breathing, increased pain, swelling, redness or warmth, worsening symptoms or other concerns. Is patient prescribed a controlled substance at d/c from ED?: No Referrals: Halima Danielle MD [Primary Care Provider] - 1-2 days Time of Disposition: 11:32
--- NOTE | 2021-02-18 11:05 | US ---
EXAMINATION TYPE: US venous doppler duplex LE LT DATE OF EXAM: 02/18/2021 10:33 AM COMPARISON: NONE CLINICAL HISTORY: pain. Left calf swelling x 3 days SIDE PERFORMED: Left TECHNIQUE: The lower extremity deep venous system is examined utilizing real time linear array sonog kelvin with graded compression, doppler sonography and color-flow sonography. VESSELS IMAGED: Common Femoral Vein Deep Femoral Vein Greater Saphenous Vein * Femoral Vein Popliteal Vein Small Saphenous Vein * Proximal Calf Veins (* superficial vessels) Left Leg: Negative for DVT. Edema channels are noted in left ankle. IMPRESSION: 1. Left lower extremity ultrasound negative for deep venous thrombosis. 2. Facial soft tissue swelling is evident at the ankle.
== END 2021-02-18 12:02 | disposition home or self-care (01) ==
LOC: EC 09:36
DX: M79.662 Pain in left lower leg (principal); I10 Essential (primary) hypertension; J43.9 Emphysema, unspecified; E78.5 Hyperlipidemia, unspecified; Z79.899 Other long term (current) drug therapy; Z87.891 Personal history of nicotine dependence
CPT/HCPCS: 99283

== ENCOUNTER → 2021-03-23 | Outpatient (CLI) | payer MEDICARE ==
[2021-03-23 16:49] LABS: Basophils # (A) 0.05 X 10*3/uL (0.00-0.10); Basophils % (A) 0.7 %; Eosinophils # (A) 0.12 X 10*3/uL (0.04-0.35); Eosinophils % (A) 1.6 %; HCT 42.9 % (39.6-50.0); HGB 14.4 g/dL (13.0-17.0); Lymphocytes # (A) 1.01 X 10*3/uL (0.90-5.00); Lymphocytes % (A) 13.6 %; MCHC 33.6 g/dL (32.0-37.0); MCV 95.3 fL (80.0-97.0); Mean Platelet Volume 10.4 fL (9.5-12.2); Monocytes # (A) 0.56 X 10*3/uL (0.20-1.00); Monocytes % (A) 7.5 %; Neutrophils # (A) 5.65 X 10*3/uL (1.80-7.70); Neutrophils % (A) 75.9 %; Platelet Count 231 X 10*3/uL (140-440); RDW 12.7 % (11.5-14.5); WBC 7.44 X 10*3/uL (4.50-10.00)
[2021-03-23 18:48] LABS: Hemoglobin A1C 5.1 % (4.0-6.0)
[2021-03-23 23:31] LABS: African American GFR (CKD) 77.9 (60.0-200.0); Albumin 4.5 g/dL (3.80-4.90); Albumin/Globulin Ratio 2.37 (1.60-3.17); Anion Gap 9.3 mmol/L (4.00-12.00); Calcium 9.2 mg/dL (8.7-10.3); Carbon Dioxide 26.7 mmol/L (21.6-31.8); Chol/HDL Ratio 3.02; Globulin 1.9 g/dL (1.6-3.3); Non-African American GFR(CKD) 67.2 (60.0-200.0); Potassium 4.1 mmol/L (3.5-5.5); Total Bilirubin 0.8 mg/dL (0.3-1.2); Total Protein 6.4 g/dL (6.2-8.2)
== END | disposition home or self-care (01) ==
LOC: LABWHC1 07:51
PROVIDERS: ATTEND Family Medicine
DX: Z12.5 Encounter for screening for malignant neoplasm of prostate (principal); E78.2 Mixed hyperlipidemia; I25.10 Atherosclerotic heart disease of native coronary artery without angina pectoris; I10 Essential (primary) hypertension; B18.2 Chronic viral hepatitis C; R73.01 Impaired fasting glucose; K63.5 Polyp of colon
CPT/HCPCS: 36415; 80053; 80061; 82306; 83036; 83735; 84153; 84443; 85025; 86803

== ENCOUNTER → 2021-04-22 | Outpatient (CLI) | payer MEDICARE, OTHER ==
--- NOTE | 2021-04-22 09:57 | US ---
EXAMINATION TYPE: US thyroid st tissue head/neck DATE OF EXAM: 04/22/2021 COMPARISON: CLINICAL HISTORY: E04.2 MULTIPLE THYROID NODULES. Hx thyroid nodules. GLAND SIZE: Right Lobe: 5.8 x 2.3 x 3.2 cm Overall Parenchyma: heterogenous Left Lobe: 3.9 x 1.6 x 1.5 cm Overall Parenchyma: heterogeneous Isthmus Thickness: 0.5 cm NODULES Limited visualization of thyroid due to inferior location RIGHT: # of nodules measured on right: 3 1. 1.3 X 1.0 x 0.7 cm, upper mid, solid or almost completely solid, hypoechoic nodule, which is wid er than tall, with smooth margins, without echogenic foci. Previously biopsied 2015. Prior size: 1.2 x 1.0 x 0.6 cm 2. 2.2 X 1.6 x 1.4 cm, mid , solid or almost completely solid, hypoechoic nodule, which is wider th an tall, with smooth margins, without echogenic foci. TR 4 Prior size: 2.3 x 1.6 x 1.4 cm 3. 1.2 X 1.0 x 0.9 cm, lower mid, solid or almost completely solid, hypoechoic nodule, which is wid er than tall, with smooth margins, without echogenic foci. Prior size: 1.7 x 1.5 x 1.8 cm LEFT: # of nodules measured on left: 0 ISTHMUS: # of nodules measured in the isthmus: 0 Bilateral neck scanned, no evidence of lymphadenopathy. IMPRESSION: 1. Moderately suspicious nodule mid right lobe thyroid. Fine-needle aspiration recommended for histol ogic workup. 2017 ACR TI-RADS LEVEL: TR-RADS 4 - Moderately Suspicious: Follow if > 1 cm, FNA if > 1.5 cm *Highest TI-RADS level nodule reported
== END | disposition home or self-care (01) ==
LOC: RADUSWWP 08:14
PROVIDERS: ATTEND Family Medicine
DX: E04.2 Nontoxic multinodular goiter (principal)
CPT/HCPCS: 76536

== ENCOUNTER → 2022-04-18 | Outpatient (CLI) | payer MEDICARE ==
[2022-04-18 10:51] LABS: Basophils # (A) 0.04 X 10*3/uL (0.00-0.10); Basophils % (A) 0.6 %; Eosinophils # (A) 0.17 X 10*3/uL (0.04-0.35); Eosinophils % (A) 2.7 %; HCT 42.2 % (39.6-50.0); HGB 14.3 g/dL (13.0-17.0); Immature Grans, Automated 0.5 %; Lymphocytes # (A) 1.12 X 10*3/uL (0.90-5.00); Lymphocytes % (A) 17.6 %; MCH 32.3 pg (27.0-32.0); MCHC 33.9 g/dL (32.0-37.0); MCV 95.3 fL (80.0-97.0); Mean Platelet Volume 10.3 fL (9.5-12.2); Monocytes # (A) 0.51 X 10*3/uL (0.20-1.00); NRBC Per 100 WBC 0 /100 WBCS (0.0-0.0); Neutrophils % (A) 70.6 %; Platelet Count 208 X 10*3/uL (140-440); RBC 4.43 X 10*6/uL (4.40-5.60); RDW 12.7 % (11.5-14.5); WBC 6.37 X 10*3/uL (4.50-10.00)
[2022-04-18 11:16] LABS: ALT 27 U/L (10-49); AST 23 U/L (14-35); African American GFR (CKD) 77.3 (60.0-200.0); Albumin 4.4 g/dL (3.8-4.9); Alkaline Phosphatase 109 U/L (41-126); BUN/Creat Ratio 19.73 Ratio (12.00-20.00); Blood Urea Nitrogen 21.7 mg/dL (9.0-27.0); Calcium 9.6 mg/dL (8.7-10.3); Carbon Dioxide 26.4 mmol/L (20.0-27.5); Chloride 105 mmol/L (96-109); Chol/HDL Ratio 2.48 Ratio; Globulin 2.2 g/dL (1.6-3.3); Glucose 110 mg/dL (70-110); LDL Cholesterol,Calculated 62.8 mg/dL (0.0-131.0); Magnesium 2.1 mg/dL (1.5-2.4); Non-African American GFR(CKD) 66.7 (60.0-200.0); Sodium 143 mmol/L (135-145); Total Protein 6.6 g/dL (6.2-8.2); VLDL Calculation 10.08 mg/dL (5.00-40.00)
== END | disposition home or self-care (01) ==
LOC: LABWHC1 07:52
PROVIDERS: ATTEND Family Medicine
DX: Z12.5 Encounter for screening for malignant neoplasm of prostate (principal); E78.2 Mixed hyperlipidemia; I10 Essential (primary) hypertension; E04.1 Nontoxic single thyroid nodule; K42.9 Umbilical hernia without obstruction or gangrene; R76.8 Other specified abnormal immunological findings in serum
CPT/HCPCS: 36415; 80053; 80061; 83036; 83735; 84153; 84443; 84550; 85025; 86803

== ENCOUNTER → 2022-12-06 | Outpatient (CLI) | payer MEDICARE, OTHER ==
--- NOTE | 2022-12-06 08:42 | CT ---
EXAMINATION TYPE: CT chest wo con CT DLP: 822 mGycm, Automated exposure control for dose reduction was used. DATE OF EXAM: 12/06/2022 8:32 AM COMPARISON: Multiple CTs of the chest with most recent on 06/15/2020., PET/CT 06/28/2020 CLINICAL INDICATION:Male, 72 years old with history of R91.1;, Follow up to lung nodule TECHNIQUE: Multiple axial images were obtained through the chest. Sagittal and coronal reformats were created for review. Contrast used: none. Oral contrast used: none. FINDINGS: LUNGS/ PLEURA: Mild centrilobular emphysema changes. No focal consolidation, pneumothorax or pleural effusion. No new or enlarging pulmonary nodules. Right minor fissure intrafissural lymph nodes right lower lobe 5 mm pulmonary nodule is stable series 3 image 36. AIRWAY: Patent and unremarkable. HEART: Size within normal limits. Moderate to severe mitral valve annular calcifications. Aortic valv e leaflet consultations. Coronary artery calcifications. MEDIASTINUM: No gross evidence of adenopathy. VASCULATURE: No aortic aneurysm. MUSCULOSKELETAL: Moderate disc degeneration changes are present throughout the thoracolumbar spine. SOFT TISSUES/LYMPH NODES: Unremarkable. LOWER NECK: No significant findings. UPPER ABDOMEN: Unchanged right adrenal nodule likely representing benign lipid rich adrenal adenoma m easuring 5 Hounsfield units and 1.2 cm. IMPRESSION: 1. Stable right lower lobe 5 mm pulmonary nodule. No new or enlarging pulmonary nodules. 2. No acute process.
== END | disposition home or self-care (01) ==
LOC: RADCTMAIN 08:10
PROVIDERS: ATTEND Family Medicine
DX: R91.1 Solitary pulmonary nodule (principal)
CPT/HCPCS: 71250

== ENCOUNTER 2023-01-01 05:43 | Day surgery (SDC) | payer MEDICARE, OTHER ==
[~2023-01-01 05:43] MED LIST changes: -ALPRAZolam 0.25 MG TAB PO PRN; -ALPRAZolam 0.5 MG TAB PO PRN; -ASPIRIN 325 MG TAB PO ONE; -HEPARIN SODIUM,PORCINE 10,000 UNIT in SODIUM CHLORIDE 0.9% 1,000 ML IRRIGATION PRN; -HEPARIN SODIUM,PORCINE 2,500 UNIT in SODIUM CHLORIDE 0.9% 250 ML IRRIGATION PRN; +HEPARIN SODIUM,PORCINE/PF 5,000 UNIT/0.5 ML SYRINGE SQ PRN; -NITROGLYCERIN SL TABS 0.4 MG TAB SUBLINGUAL PRN; -SODIUM CHLORIDE 0.9% 1,000 ML in EMPTY BAG 1 BAG IV ONE
[2023-01-01] MEDS ORDERED: MIDAZOLAM 2 MG/2 ML VIAL IV PRN (06:10)
[2023-01-01] MEDS ORDERED: DEXAMETHASONE SOD PHOSPHATE 4 MG/ML 1 ML VIAL IV ONE (06:10)
[2023-01-01] MEDS ORDERED: LACTATED RINGERS 1,000 ML IV SCH (06:10)
[2023-01-01] MEDS ORDERED: LIDOCAINE 1% (10MG/ML) FOR IV START INTRADERMA PRN (06:10)
[2023-01-01] MEDS ORDERED: HYDROmorphone 0.5 MG/0.5 ML SYRINGE IVP PRN (06:10)
[2023-01-01] MEDS ORDERED: ONDANSETRON 4 MG/2 ML VIAL IVP ONE (06:10)
[2023-01-01] MEDS: ACETAMINOPHEN TAB 500 MG TAB PO PRN ×2 (06:30→07:07)
[2023-01-01] MEDS ORDERED: DEXAMETHASONE SOD PHOSPHATE 4 MG/ML 1 ML VIAL IVP ONE (06:30)
[2023-01-01 07:00] LABS: Glucose,Whole Blood 104 mg/dL (70-110)
[2023-01-01] MEDS ORDERED: MIDAZOLAM 2 MG/2 ML VIAL IVP ONE (07:11)
--- NOTE | 2023-01-01 07:13 | P.GSHP ---
History of Present Illness H&P Date: 01/01/23 Chief Complaint: Umbilical hernia 72-year-old male here for elective repair umbilical hernia. Resident for the last 10 years. Increasing in pain. Skin appears red at times. Past Medical History Past Medical History: Coronary Artery Disease (CAD), COPD, GERD/Reflux, Hyperlipidemia, Hypertension, Liver Disease, Osteoarthritis (OA), Sleep Apnea/CPAP/BIPAP, Thyroid Disorder Additional Past Medical History / Comment(s): R pulmonary nodule/monitoring, thyroid nodules/monitoring, sl edema BLE, hx hepatitis A as child/hepatitis C 1990 - tx 2001, DDD, low back pain, uses CPAP History of Any Multi-Drug Resistant Organisms: None Reported Past Surgical History: Adenoidectomy, Appendectomy, Back Surgery, Heart Catheterization With Stent, Joint Replacement, Orthopedic Surgery, Tonsillectomy Additional Past Surgical History / Comment(s): total R hip arthroplasty. back fusion, milla cataracts, hemorrhoidectomy, benign tumor removed from chest area, thyroid nodule biopsy, colonoscopy with benign polypectomy. PTCA w/ 2 stents Past Anesthesia/Blood Transfusion Reactions: Postoperative Nausea & Vomiting (PONV) Additional Past Anesthesia/Blood Transfusion Reaction / Comment(s): Vertigo after anesthesia. No blood transfusions Date of Last Stent Placement:: 09/28/20 Smoking Status: Former smoker - Past Family History Mother Family Medical History: Cancer Additional Family Medical History / Comment(s): Liver Father Additional Family Medical History / Comment(s): cystomegaly Brother(s) Family Medical History: Pulmonary Embolus Additional Family Medical History / Comment(s): age 17 Medications and Allergies Home Medications Medication Instructions Recorded Confirmed Type hydroCHLOROthiazide 25 mg PO QAM 09/24/15 12/27/22 History Metoprolol Tartrate [Lopressor] 50 mg PO BID 09/22/20 12/27/22 History lisinopriL 20 mg PO BID 09/22/20 12/27/22 History Nitroglycerin Sl Tabs [Nitrostat] 0.4 mg SUBLINGUAL Q5M PRN #0 tab 09/28/20 12/27/22 Rx Atorvastatin [Lipitor] 80 mg PO HS 02/18/21 12/27/22 History Aspirin [Children's Aspirin] 81 mg PO HS 12/09/21 12/27/22 History Ibuprofen [Motrin] 600 mg PO HS PRN 12/09/21 12/27/22 History Vit C/E/Zn/Coppr/Lutein/Zeaxan 1 each PO QAM 12/27/22 12/27/22 History [Preservision Areds 2 Softgel] Cholecalciferol [Vitamin D3 (25 25 mcg DAILY 01/01/23 01/01/23 History Mcg = 1000 Iu)] Allergies Allergy/AdvReac Type Severity Reaction Status Date / Time amlodipine [From Norvasc] AdvReac Swelling Verified 01/01/23 06:17 BLE meloxicam [From Mobic] AdvReac Swelling Verified 01/01/23 06:17 BLE Surgical - Exam Vital Signs Temp Pulse Resp BP Pulse Ox 97.5 F L 58 L 20 154/82 100 01/01/23 07:01 01/01/23 07:01 01/01/23 07:01 01/01/23 07:01 01/01/23 07:01 Physical exam: General: Well-developed, well-nourished HEENT: Normocephalic, sclerae nonicteric Abdomen: Nontender, nondistended, reducible umbilical hernia Extremities: No edema Neuro: Alert and oriented Assessment and Plan (1) Umbilical hernia Narrative/Plan: Will proceed with open repair umbilical hernia mesh. Risks of bleeding, infection, recurrence, bladder and bowel injury, numbness, nerve injury were discussed with the patient. The patient understands and wishes to proceed. Current Visit: Yes Status: Acute Code(s): K42.9 - UMBILICAL HERNIA WITHOUT OBSTRUCTION OR GANGRENE SNOMED Code(s): 552358663
[2023-01-01] MEDS ORDERED: PROPOFOL 10 MG/ML 20 ML VIAL IV ONE (07:22)
[2023-01-01] MEDS ORDERED: ROCURONIUM 10 MG/ML (5 ML VIAL) IV ONE (07:22)
[2023-01-01] MEDS ORDERED: NEOSTIGMINE 1 MG/ML 10 ML VIAL ONE (07:22)
[2023-01-01] MEDS ORDERED: SUCCINYLCHOLINE CHLORIDE 200 MG/10 ML VIAL IV ONE (07:22)
[2023-01-01] MEDS ORDERED: GLYCOPYRROLATE 0.2 MG/ML 2 ML VIAL ONE (07:22)
[2023-01-01] MEDS ORDERED: ePHEDrine 50 MG/ML 1 ML VIAL ONE (07:22)
[2023-01-01] MEDS ORDERED: fentaNYL (PF) 50 MCG/ML 2 ML AMP ONE (07:22)
[2023-01-01] MEDS ORDERED: LIDOCAINE 2% INJ 20 MG/ML (2 ML VIAL) ONE (07:22)
[2023-01-01] MEDS ORDERED: ROPIVACAINE 5 MG/ML 30 ML VIAL ONE (07:22)
[2023-01-01 07:27] VITALS: RESP 16
[2023-01-01] MEDS ORDERED: BUPIVACAINE (PF) 0.25% 30 ML VIAL SQ ONE ×2 (07:51)
--- NOTE | 2023-01-01 08:34 | P.OP ---
Date of Procedure: 01/01/23 Procedure(s) Performed: PREOPERATIVE DIAGNOSIS: Reducible umbilical hernia POSTOPERATIVE DIAGNOSIS: Same PROCEDURE: Open repair reducible umbilical hernia with mesh SURGEON: Dr. Chong ANESTHESIA: General OPERATIVE PROCEDURE DETAILS: The patient was placed in the operating table in the supine position. A left sided periumbilical incision was made using the scalpel. The subcutaneous tissues were dissected bluntly and with cautery. The hernia sac was identified. The umbilical attachments to the fascia were divided using electrocautery. The hernia sac was excised. The defect in the fascia measured 3.2 x 1.5 cm The fat overlying the fascia was dissected. No additional defects were seen. The preperitoneal space was then dissected using blunt dissection and electrocautery. The 6.4 cm ventral ex mesh was placed beneath the fascia and sutured in place using trans-fascial 0 Ethibond sutures. The defect was closed using interrupted vest over pants 0 Ethibond mattress sutures. The subcutaneous tissues were reapproximated using inverted 2-0 & 3-0 Vicryl sutures. The umbilicus was tacked back down to the fascia using a 2-0 Vicryl suture. The skin was closed using 4-0 Monocryl sutures. Skin glue and sterile dressings were then applied. HERNIA CHARACTERISTICS: Length: 3.2 cm Width: 1.5 cm Type: Umbilical TYPE OF MESH USED: 6 cm ventral ex LOCATION OF MESH: Sub-lay FIXATION: Trans-fascial 0 Ethibond PREOPERATIVE DISCUSSION ON SMOKING CESSASTION: Yes PREOPERATIVE DISCUSSION ON MORBID OBESITY: Yes PREOPERATIVE DISCUSSION ON APPROPRIATE USE OF NARCOTIC USE: Yes PREOPERATIVE EDUCATION: Multi Modal, Smoking Cessation and Weight Loss with BMI over 35. DISPOSITION: Stable to recovery room
[2023-01-01 08:37] VITALS: TEMP 97
[2023-01-01] MEDS ORDERED: ACETAMINOPHEN TAB 325 MG TAB PO SCH (08:45)
[2023-01-01 09:46] VITALS: BP 164/90; PULSE 68
[2023-01-01] MEDS ORDERED: IBUPROFEN 600 MG TAB PO SCH (11:30)
--- NOTE | 2023-01-01 12:22 | P.ANPRN ---
Procedure Note - Anesthesia - Nerve Block Performed Bilateral Rectus Abdominis Single Time Out Performed: Yes Date of Procedure: 01/01/23 Procedure Start Time: 07:10 Procedure Stop Time: 07:14 Location of Patient: PreOp Indication: Acute Post-Operative Pain, Requested by Surgeon Sedation Type: Sedate with meaningful contact maintained Preparation: Sterile Prep Position: Supine Needle Types: Pajunk Needle Gauge: 21 Ultrasound used to visualize needle placement: Yes Ultrasound used to observe medication spread: Yes Blood Aspirated: No Pain Paresthesia on Injection Noted: No Resistance on Injection: Normal Image Stored and Saved: Yes Events: Uneventful and Well Tolerated (Ropivacaine 0.5% 20 mL given bilaterally)
== END 2023-01-01 09:45 | disposition home or self-care (01) ==
LOC: OR 05:43
PROVIDERS: ATTEND Surgery
DX: K42.9 Umbilical hernia without obstruction or gangrene (principal); I25.10 Atherosclerotic heart disease of native coronary artery without angina pectoris; I10 Essential (primary) hypertension; G47.33 Obstructive sleep apnea (adult) (pediatric); E66.9 Obesity, unspecified; Z68.36 Body mass index [BMI] 36.0-36.9, adult; Z99.89 Dependence on other enabling machines and devices; Z95.5 Presence of coronary angioplasty implant and graft; Z79.1 Long term (current) use of non-steroidal anti-inflammatories (NSAID); Z79.82 Long term (current) use of aspirin; Z79.02 Long term (current) use of antithrombotics/antiplatelets; Z79.899 Other long term (current) drug therapy; Z88.6 Allergy status to analgesic agent; Z88.8 Allergy status to other drugs, medicaments and biological substances; Z98.890 Other specified postprocedural states; Z96.641 Presence of right artificial hip joint; B19.20 Unspecified viral hepatitis C without hepatic coma; E78.5 Hyperlipidemia, unspecified; J44.9 Chronic obstructive pulmonary disease, unspecified; K21.9 Gastro-esophageal reflux disease without esophagitis; M19.90 Unspecified osteoarthritis, unspecified site; E04.1 Nontoxic single thyroid nodule; Z87.39 Personal history of other diseases of the musculoskeletal system and connective tissue; Z98.1 Arthrodesis status; Z87.891 Personal history of nicotine dependence; Z80.0 Family history of malignant neoplasm of digestive organs
CPT/HCPCS: 49593; 64488; C1781; J2250; J0330; J1100; J2710; J0690; J2405; J3010; J2795; J2704; J1644; J2001

== ENCOUNTER → 2023-08-09 | Outpatient (CLI) | payer MEDICARE, OTHER ==
[2023-08-09 16:32] LABS: BUN/Creat Ratio 23.11 Ratio (12.00-20.00); Blood Urea Nitrogen 20.8 mg/dL (9.0-27.0); Carbon Dioxide 28.8 mmol/L (21.6-31.8); Chloride 105 mmol/L (96-109); Chol/HDL Ratio 3.23 Ratio; Glucose 102 mg/dL (70-110); LDL Cholesterol,Calculated 141.7 mg/dL (0.0-131.0); Potassium 4.5 mmol/L (3.5-5.5); Sodium 142 mmol/L (135-145); VLDL Calculation 10.76 mg/dL (5.00-40.00)
== END | disposition home or self-care (01) ==
LOC: LABWHC1 07:56
PROVIDERS: ATTEND Internal Medicine Interventional Cardiology
DX: I10 Essential (primary) hypertension (principal); I25.10 Atherosclerotic heart disease of native coronary artery without angina pectoris
CPT/HCPCS: 36415; 80048; 80061; 83036; 84443

== ENCOUNTER → 2023-09-24 | Outpatient (CLI) | payer MEDICARE, OTHER ==
--- NOTE | 2023-09-26 21:45 | MR ---
EXAMINATION TYPE: MR brain wo/w con DATE OF EXAM: 09/24/2023 7:23 PM CLINICAL INDICATION:Male, 73 years old with history of R43.0 ANOSMIA; PHH, Anosmia, Dizziness, hearin g loss bilat, COMPARISON: 03/24/2015. TECHNIQUE: Multi planar, multi sequence imaging was performed through the brain including: T1, T2, In version recovery, susceptibility weighted imaging and gradient echo imaging and Diffusion weighted im aging. The patient was then given intravenous contrast and multi planar, T1 fat-saturation images wer e obtained. IV Contrast: 11 cc Gadavist FINDINGS: The casas-white junctions, ventricular system, basal cisterns appear unremarkable. Diffusion-weighted imaging shows no evidence of restricted diffusion to suggest acute/subacute infarct. Intracranial ar terial flow voids are maintained. Midline structures show no abnormality. Scattered foci of high T2 s ignal intensity are seen within the periventricular white matter. The susceptibility weighted images do not reveal any evidence for micro-hemorrhage. After administration of gadolinium, no abnormal enha ncement is seen. The bone marrow signal is within normal limits. Paranasal sinuses and mastoid air cells: No significant paranasal sinus disease. No abnormal enhancem ent on the olfactory nerves. Visualized orbits: Left aphakia IMPRESSION: 1. No evidence of intracranial mass, acute/subacute infarct, or abnormal enhancement. The olfactory n erve is within normal limits. 2. Nonspecific white matter changes, likely related to small vessel ischemic disease.
== END | disposition home or self-care (01) ==
LOC: RADMRIMAIN 18:28
PROVIDERS: ATTEND Otolaryngology
DX: G93.89 Other specified disorders of brain (principal); H91.93 Unspecified hearing loss, bilateral; R43.0 Anosmia
CPT/HCPCS: 70553; A9585

== ENCOUNTER → 2024-01-08 | Outpatient (CLI) | payer MEDICARE, OTHER ==
[2024-01-08 14:54] LABS: Basophils # (A) 0.04 X 10*3/uL (0.00-0.10); Basophils % (A) 0.5 %; Eosinophils # (A) 0.14 X 10*3/uL (0.04-0.35); Eosinophils % (A) 1.9 %; HCT 43.3 % (39.6-50.0); HGB 14.3 g/dL (13.0-17.0); Lymphocytes # (A) 1.22 X 10*3/uL (0.90-5.00); Lymphocytes % (A) 16.6 %; MCH 32.2 pg (27.0-32.0); MCV 97.5 FL (80.0-97.0); Mean Platelet Volume 10.4 FL (9.5-12.2); Monocytes # (A) 0.66 X 10*3/uL (0.20-1.00); NRBC Per 100 WBC 0 X 10*3/uL (0.00-0.01); Neutrophils # (A) 5.26 X 10*3/uL (1.80-7.70); Neutrophils % (A) 71.5 %; Platelet Count 195 X 10*3/uL (140-440); RBC 4.44 X 10*6/uL (4.40-5.60); RDW 12.9 % (11.5-14.5); WBC 7.36 X 10*3/uL (4.50-10.00)
[2024-01-08 15:46] LABS: ALT 28 U/L (10-49); AST 23 U/L (14-35); Albumin 4.4 g/dL (3.8-4.9); Albumin/Globulin Ratio 2.32 Ratio (1.60-3.17); Alkaline Phosphatase 93 U/L (41-126); Blood Urea Nitrogen 23.2 mg/dL (9.0-27.0); Calcium 9.9 mg/dL (8.7-10.3); Carbon Dioxide 26.5 mmol/L (21.6-31.8); Chloride 104 mmol/L (96-109); Chol/HDL Ratio 2.44 Ratio; Globulin 1.9 g/dL (1.6-3.3); Glucose 99 mg/dL (70-110); LDL Cholesterol,Calculated 76.4 mg/dL (0.0-131.0); Potassium 4.3 mmol/L (3.5-5.5); Sodium 142 mmol/L (135-145); Total Bilirubin 0.4 mg/dL (0.3-1.2); Total Protein 6.3 g/dL (6.2-8.2)
== END | disposition home or self-care (01) ==
LOC: LABWHC1 09:20
PROVIDERS: ATTEND Family Medicine
DX: I10 Essential (primary) hypertension (principal); E78.2 Mixed hyperlipidemia; E04.2 Nontoxic multinodular goiter; R13.12 Dysphagia, oropharyngeal phase; Z87.891 Personal history of nicotine dependence
CPT/HCPCS: 36415; 80053; 80061; 82306; 83036; 84443; 85025

== ENCOUNTER → 2024-01-11 | Outpatient (CLI) | payer MEDICARE, OTHER ==
--- NOTE | 2024-01-11 16:57 | US ---
EXAMINATION TYPE: US thyroid st tissue head/neck DATE OF EXAM: 01/11/2024 COMPARISON: NONE CLINICAL INDICATION: Male, 73 years old with history of E04.2 MULTIPLE THYROID NODULE; f/u GLAND SIZE: Right Lobe: 2.8 x 1.7 x 2.1 cm Overall Parenchyma: heterogeneous Left Lobe: 3.3 x 1.8 x 1.7 cm Overall Parenchyma: heterogeneous Isthmus Thickness: 0.3 cm NODULES RIGHT: # of nodules measured on right: 3 1. 1.2 X 1.4 x 1.3 cm, lower , solid or almost completely solid, hypoechoic nodule, which is wider than tall, with smooth margins, without echogenic foci. Prior size: 1.6 x 1.6 x 1.1 cm 2. 2.0 X 1.8 x 1.9 cm, mid , solid or almost completely solid, hypoechoic nodule, which is taller t beth wide, with smooth margins, without echogenic foci. Prior size: 2.3 x 1.9 x 1.6 cm 3. 1.1 X 1.3 x 0.7 cm, upper , solid or almost completely solid, hypoechoic nodule, which is wider than tall, with smooth margins, without echogenic foci. Prior size: 1.7 x 1.3 x 1.0 cm LEFT: # of nodules measured on left: 0 ISTHMUS: # of nodules measured in the isthmus: 0 Bilateral neck scanned, no evidence of lymphadenopathy. IMPRESSION: 1. No thyromegaly 2. 3 TR4 right thyroid nodules all of which have decreased in size in the interval. 2017 ACR TI-RADS LEVEL: 4 *Highest TI-RADS level nodule reported
--- NOTE | 2024-01-12 11:01 | CTL ---
EXAMINATION TYPE: CT Low Dose Lung DATE OF EXAM ORDERED: 01/11/2024 HISTORY: Tobacco use. Lung cancer screening CT DLP: 134.[address] CTDI: 3.3 mGy Automated exposure control for dose reduction was used. SCREENING VISIT: Initial COMPARISON: 12/06/2022 TECHNIQUE: Low dose computed tomography scan was performed through the chest at 1 mm thick sections a nd reconstructed images in the coronal plane at [address] DIAGNOSTIC QUALITY: Satisfactory FINDINGS: LUNG NODULES: None. 1. There is a 0.6 cm pleural-based posterior lateral right midlung nodule. Series 4 image 177. Previo us measurement 0.5 cm. 2. There is a 0.6 cm posterior right lung nodule superior segment right lower lobe measuring 0.6 cm. Series 4 image 207. 3. Soft tissue versus vascular malformation right lower lobe measuring 3.2 x 2.2 cm. Example image 21 0. This is an interval change from 2022. 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 Differential diagnosis however includes a neoplastic process. Some soft tissue may surround a medial right lower lobe bronchus. Additional evaluation of this area is recommended with PET/CT. RIGHT PLEURAL SPACE: Effusion: None Calcification: None Thickening: None Pneumothorax: Not LEFT PLEURAL SPACE: Effusion: None Calcification: None Thickening: None Pneumothorax: None HEART: Heart Size: Normal Coronary calcification: Moderate Pericardial effusion: None OTHER FINDINGS: Upper abdomen: Normal Bony thorax: Normal Supraclavicular region: Normal Other: Ascending thoracic aorta at the level the main pulmonary artery measures 4.0 cm. The main pul monary artery at the bifurcation measures 2.9 cm. IMPRESSION: 1. Interval development of a soft tissue density in superior segment right lower lobe. There may be i ncreased vascularity or direct extension. Additional workup with PET CT is recommended. 2. There are additional nodules in the right lower lobe. FOLLOW UP CT CHEST RECOMMENDATION: PET/CT CT LUNG RAD: Lung-Rad 4B Suspicious
== END | disposition home or self-care (01) ==
LOC: RADUSWWP 14:55
PROVIDERS: ATTEND Family Medicine
DX: Z12.2 Encounter for screening for malignant neoplasm of respiratory organs (principal); E04.1 Nontoxic single thyroid nodule; R91.8 Other nonspecific abnormal finding of lung field; Z87.891 Personal history of nicotine dependence
CPT/HCPCS: 71271; 76536

== ENCOUNTER → 2024-02-10 | Outpatient (CLI) | payer MEDICARE, OTHER ==
--- NOTE | 2024-02-10 14:40 | PE ---
EXAMINATION TYPE: PET CT fusion skull to thigh DATE OF EXAM: 02/10/2024 CLINICAL INDICATION:Male, 73 years old with history of R9389, R818; TECHNIQUE: Following the intravenous administration of 13.0 mCi of F-18 FDG, whole body images are performed from the skull base to the midthigh. Images are reviewed on the computer in the coronal, a xial, and sagittal planes. Reconstructed rotating images are created on independent workstation and reviewed on the computer. A non-contrast CT is performed in conjunction with the PET scan. Glucose level 109 mg/dL CT DLP: 1019 mGycm, Automated exposure control for dose reduction was used. COMPARISON: CT 01/11/2024, PET/CT None, FINDINGS: Mediastinal SUV mean is 2.4. Hepatic parenchyma SUV mean is 3.0. SKULL BASE AND NECK: * Submental lymph node on the right measuring 7 mm Max SUV 4.5. * Physiologic uptake within the adenoids bilaterally and the right max SUV 7.2 and on the left 8.2. CHEST, MEDIASTINUM, AND HILAR REGION: * Right lower lobe airspace changes thought to represent acute infectious process max SUV 7.8. * Somewhat linear uptake along the bronchovascular bundle in the right upper lobe max SUV 4.4. ABDOMEN AND PELVIS: No suspicious radiotracer activity. MUSCULOSKELETAL STRUCTURES: No suspicious radiotracer activity. OTHER CT: Bilaterally aphakia. Atherosclerosis at the carotid bifurcations. Right thyroid nodule post eriorly. Moderate coronary artery atherosclerosis. Right renal cyst. Right hip arthroplasty appears i ntact. IMPRESSION: 1. Right lower lobe and a single focus in the right upper lobe of FDG activity. The right lower lobe likely representing airspace disease. The right upper lobe is indeterminate this time. Short-term fo llow-up with CT chest recommended in 3 months to exclude underlying malignancy. 2. Indeterminate uptake within a single lymph node in the submental region on the right. Short-term follow-up CT neck in 3 months recommended to ensure resolution and/or stability.
== END | disposition home or self-care (01) ==
LOC: RADPETMAIN 08:04
PROVIDERS: ATTEND Family Medicine
DX: R93.89 Abnormal findings on diagnostic imaging of other specified body structures (principal)
CPT/HCPCS: 78815; A9552

== ENCOUNTER → 2024-07-04 | Outpatient (CLI) | payer MEDICARE, OTHER ==
--- NOTE | 2024-07-04 13:06 | CT ---
EXAMINATION TYPE: CT chest wo con CT DLP: 750.4 mGycm, Automated exposure control for dose reduction was used. DATE OF EXAM: 07/04/2024 9:46 AM COMPARISON: PET CT 02/10/2024, 06/25/2020, CT low-dose lung 01/11/2024, CT chest 12/06/2022, CT chest and pelvis 06/15/2020 CLINICAL INDICATION:Male, 74 years old with history of R94.2 ABNORMAL PET RIGHT LUNG; PHH, Abnormal P ET Scan...right lung TECHNIQUE: Multiple axial images were obtained through the chest without IV contrast. Lack of IV or o ral contrast limits evaluation of solid and hollow organ viscera. . Coronal and sagittal reformats re viewed. FINDINGS: LUNGS/ PLEURA: No pleural effusion or pneumothorax. Mild centrilobular emphysematous changes. Decreas e soft tissue in the right inferior perihilar region measuring 1.6 cm which was FDG activity on prior CT. Previously measured up to 2.9 cm. Decrease adjacent opacities with some linear scarring and/or a telectasis demonstrated. There is a posterior right upper lobe adjacent 5.4 mm pulmonary nodular dens ity (series 205, 20). Appears to been present on prior exam. AIRWAY: Patent and unremarkable.. HEART: Size within normal limits. Trace pericardial effusion. Mild coronary artery calcifications. MEDIASTINUM: No gross evidence of adenopathy. VASCULATURE: No aortic aneurysm. Mild atherosclerotic calcification of the aorta and its branches. MUSCULOSKELETAL: No acute osseous abnormalities. Multilevel degenerative disc disease. SOFT TISSUES/LYMPH NODES: Unremarkable. LOWER NECK: Stable size of 2.3 cm hypodense right thyroid lobe nodule. UPPER ABDOMEN: Stable right 1.5 cm adrenal gland lipid rich adenoma. IMPRESSION: 1. Decreased size of right infrahilar soft tissue nodularity which was FDG active on prior PET/CT wit h decreased opacities within the right lower lobe with residual scarring and/or atelectasis. Stable 5 .4 mm adjacent pulmonary nodule. [employer] resolving infection however underlying neoplasm i s not excluded. Follow-up CT chest with IV contrast in 3-6 months is recommended. 2. Stable right adrenal gland lipid rich adenoma. 3. Stable size of right thyroid lobe hypodense nodule. [facility], , 07/04/2024 1:04 PM
== END | disposition home or self-care (01) ==
LOC: RADCTMAIN 09:10
PROVIDERS: ATTEND Internal Medicine Pulmonary Disease
CPT/HCPCS: 71250

== ENCOUNTER → 2024-11-18 | Outpatient (CLI) | payer MEDICARE, OTHER ==
[2024-11-18 15:04] LABS: BUN/Creat Ratio 17.91 Ratio (12.00-20.00); Blood Urea Nitrogen 19.7 mg/dL (9.0-27.0); Calcium 9.7 mg/dL (8.7-10.3); Carbon Dioxide 27.6 mmol/L (21.6-31.8); Chloride 107 mmol/L (96-109); Glucose 91 mg/dL (70-110); Potassium 4.3 mmol/L (3.5-5.5); Sodium 145 mmol/L (135-145)
== END | disposition home or self-care (01) ==
LOC: LABWHC1 10:53
PROVIDERS: ATTEND Nurse Practitioner
DX: I10 Essential (primary) hypertension (principal)
CPT/HCPCS: 36415; 80048

== ENCOUNTER → 2025-04-01 | Outpatient (CLI) | payer MEDICARE, OTHER ==
[2025-04-01 08:47] LABS: ALT 25 U/L (4-49); AST 24 U/L (17-59); African American GFR (CKD) >90 (>60 ml/min/1.73 sqM); Albumin 4.1 g/dL (3.5-5.0); Albumin/Globulin Ratio 1.7; Alkaline Phosphatase 81 U/L (38-126); Anion Gap 9 mmol/L; Blood Urea Nitrogen 20 mg/dL (9-20); Calcium 10.2 mg/dL (8.4-10.2); Carbon Dioxide 29 mmol/L (22-30); Chloride 102 mmol/L (98-107); Globulin 2.4 g/dL; Glucose 102 mg/dL (74-99); NT-Pro-B-Type Natriuretic Pept 362 pg/mL; Non-African American GFR(CKD) 88 (>60 ml/min/1.73 sqM); Potassium 3.8 mmol/L (3.5-5.1); Sodium 140 mmol/L (137-145); Total Protein 6.5 g/dL (6.3-8.2)
[2025-04-01 10:42] LABS: HCT 43.4 % (39.6-50.0); HGB 14.7 g/dL (13.0-17.0); MCH 32.4 pg (27.0-32.0); MCHC 33.9 g/dL (32.0-37.0); MCV 95.6 FL (80.0-97.0); NRBC Per 100 WBC 0 X 10*3/uL (0.00-0.01); Platelet Count 204 X 10*3/uL (140-440); RBC 4.54 X 10*6/uL (4.40-5.60); RDW 12.9 % (11.5-14.5); WBC 7.25 X 10*3/uL (4.50-10.00)
[2025-04-01 16:04] LABS: Cholesterol 169.00 mg/dL (0.00-200.00); HDL Cholesterol 55.30 mg/dL (40.00-60.00); LDL Cholesterol,Calculated 98.9 mg/dL (0.0-131.0); Triglycerides 73.80 mg/dL (0.00-149.00); VLDL Calculation 14.76 mg/dL (5.00-40.00)
== END | disposition home or self-care (01) ==
LOC: LABWHC1 07:10
PROVIDERS: ATTEND Student in an Organized Health Care Education/Training Program
DX: Z13.6 Encounter for screening for cardiovascular disorders (principal); D72.9 Disorder of white blood cells, unspecified; I50.9 Heart failure, unspecified; E11.9 Type 2 diabetes mellitus without complications; E78.5 Hyperlipidemia, unspecified; E03.9 Hypothyroidism, unspecified; R79.89 Other specified abnormal findings of blood chemistry
CPT/HCPCS: 36415; 80053; 80061; 83036; 83880; 85027; 86140